=== PATIENT | female | born 1955 | race African-American/Black ===

== ENCOUNTER 2022-07-09 11:43 | Emergency (ER) | payer OTHER ==
[~2022-07-09] VITALS: Ht 162.6 cm; Wt 59.0 kg
[~2022-07-09 11:43] MED LIST: AMLO5TAB4 PO
[2022-07-09 12:04] VITALS: BP 148/94
--- NOTE | 2022-07-09 12:05 | NUR ---
"Started having body aches last night woke up cough/congestion/fever"
[2022-07-09] MEDS ORDERED: DEXAMETHASONE SOD PHOSPHATE 4 MG/ML VIAL IM ONE (12:30)
[2022-07-09] MEDS ORDERED: BENZ1LOZ58 PO (12:32)
[2022-07-09] MEDS ORDERED: LORA10TA68 PO (12:32)
[2022-07-09] MEDS ORDERED: DEXAMETHASONE SOD PHOSPHATE 10 MG/ML VIAL ONE (12:47)
--- NOTE | 2022-07-09 13:00 | NUR ---
Patient discharged to home in stable condition. Written and verbal after care instructions given. Patient verbalizes understanding of instruction.
== END 2022-07-09 13:00 | disposition home or self-care (01) ==
LOC: ER 11:49
DX: J06.9 Acute upper respiratory infection, unspecified (principal); I10 Essential (primary) hypertension; Z90.710 Acquired absence of both cervix and uterus; Z88.0 Allergy status to penicillin; Z88.8 Allergy status to other drugs, medicaments and biological substances; Z79.899 Other long term (current) drug therapy
CPT/HCPCS: 99283; 96372; J1100